=== PATIENT | male | born 1975 | race Caucasian/White ===

== ENCOUNTER 2018-06-03 15:50 | Emergency (ER) | payer SELFPAY ==
[~2018-06-03] VITALS: Ht 167.6 cm; Wt 69.2 kg
[2018-06-03 16:20] VITALS: BP 143/92
--- NOTE | 2018-06-03 17:23 | NUR ---
AMBULATED INTO ROOM 9, AWAITS MD WHALEN
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
--- NOTE | 2018-06-03 19:08 | NUR ---
ASSUMED CARE OF PT AT THIS TIME FROM YAO JEWELL
--- NOTE | 2018-06-03 19:08 | NUR ---
Pt report given to TAYLOR. Transfer of care at this time.
--- NOTE | 2018-06-03 19:30 | NUR ---
Patient being evaluated by at bedside.
[2018-06-03 20:29] VITALS: BP 140/99
== END 2018-06-03 20:24 | disposition home or self-care (01) ==
LOC: MED 15:50
DX: S16.1XXA Strain of muscle, fascia and tendon at neck level, initial encounter (principal); S39.012A Strain of muscle, fascia and tendon of lower back, initial encounter; K21.9 Gastro-esophageal reflux disease without esophagitis; Z88.8 Allergy status to other drugs, medicaments and biological substances; V43.62XA Car passenger injured in collision with other type car in traffic accident, initial encounter; Y93.89 Activity, other specified; Y92.411 Interstate highway as the place of occurrence of the external cause; Y99.8 Other external cause status
CPT/HCPCS: 71045; 72040; 72100; 99283